=== PATIENT | female | born 1930 | race Asian ===

== ENCOUNTER 2020-11-20 15:53 | Emergency (ER) | payer OTHER, SELFPAY ==
[~2020-11-20] VITALS: Ht 152.4 cm; Wt 52.2 kg
[2020-11-20 15:53] VITALS: BP_SYST 141
[~2020-11-20 15:53] MED LIST: ALLO100T PO; AMLO2.5T2 PO; ASA81 PO; FERR220S6 PO; FURO-149 PO; HYDR-4039 PO; ISOS60TA71 PO; LIP20 PO; PRED20TA PO; PRO40 PO; REN800 PO; RESEYE OP; SEVE800T27; SODI650T PO; TOPXL100 PO
--- NOTE | 2020-11-20 16:01 | NUR ---
Placed in room 01 . Placed on underwear cutter, blood pressure machine and pulse oximeter. To gown for exam. Side rails up.
--- NOTE | 2020-11-20 16:05 | NUR ---
DR HERNANDEZ IN TO ASSESS
--- NOTE | 2020-11-20 16:16 | NUR ---
RECEIVED AND IN ROOM, PT HERE FROM [facility] FOR [facility]EM[facility], PT CALM, ALERT, RESP UNLABORED, SKIN WARM AND DRY
--- NOTE | 2020-11-20 16:23 | NUR ---
LABS EKG, CXR COMPLETED, PT CALM, ALERT, NO DISTRESS
[2020-11-20 16:49] LABS: BASOPHILS # (AUTO) 0.1 K/uL (0.0-0.2); BASOPHILS % (AUTO) 0.8 % (0.0-2.0); EOSINOPHILS % (AUTO) 0.5 % (0.0-4.0); HEMATOCRIT 24.9 % (36-48); HEMOGLOBIN 8.2 g/dL (12.0-16.0); LYMPHOCYTES # (AUTO) 1.8 K/uL (1.0-5.5); LYMPHOCYTES % (AUTO) 28.8 % (20.5-51.5); MEAN CORPUSCULAR HEMOGLOBIN 32 pg (27-31); MEAN CORPUSCULAR HGB CONC 33 % (32-36); MEAN CORPUSCULAR VOLUME 97 fL (79.0-98.0); MONOCYTES % (AUTO) 15.8 % (1.7-9.3); NEUTROPHILS # (AUTO) 3.4 K/uL (1.8-7.7); NEUTROPHILS % (AUTO) 54.1 % (40.0-70.0); PLATELET COUNT (AUTO) 121 K/uL (130-430); RED BLOOD CELL COUNT(AUTO) 2.56 MIL/uL (4.2-6.2); RED CELL DISTRIBUTION WIDTH 18.6 % (9.0-15.0); WHITE BLOOD COUNT (AUTO) 6.3 K/uL (4.8-10.8)
[2020-11-20 16:54] LABS: ANION GAP -3 (5-15); CALCIUM 8.1 mg/dL (8.4-11.0); CHLORIDE 96 mmol/L (98-107); CREATININE 2.63 mg/dL (0.55-1.30); GLUCOSE 107 mg/dL (70-99); POTASSIUM 3.7 mmol/L (3.5-5.1); SODIUM SERUM 129 mmol/L (136-145); UREA NITROGEN, BLOOD 18 mg/dL (8-21)
[2020-11-20 17:00] LABS: ALANINE AMINOTRANSFERASE 22 U/L (12-78); ALBUMIN 2.3 g/dL (3.4-4.8); AMYLASE 86 U/L (0-100); ASPARTATE AMINOTRANSFERASE 31 U/L (10-37); LIPASE 473 U/L (73-393); TOTAL BILIRUBIN 0.4 mg/dL (0.0-1.0)
[2020-11-20 17:06] LABS: INR 1.1 (0.8-1.2); PROTHROMBIN TIME 11.2 SECS (9.5-12.5)
--- NOTE | 2020-11-20 17:55 | NUR ---
PT AWARE OF DISCHARGE AND GOING BACK VIA AMBULANCE, IN AGREEMENT
[2020-11-20 18:16] VITALS: BP_SYST 135
--- NOTE | 2020-11-20 18:37 | NUR ---
REPORT CALLED TO SANAM AT THE "[place]. AGREEABLE AND AWARE OF ROBERT LANIER.
--- NOTE | 2020-11-20 20:17 | NUR ---
ASLEEP, NO DISTRESS NOTED.
--- NOTE | 2020-11-20 22:00 | NUR ---
DOZES ON AND OFF. DENIES PAIN, SOB.
--- NOTE | 2020-11-21 00:20 | NUR ---
Patient given written and verbal discharge instructions and verbalizes understanding. ER MD DR MIRANDA discussed with patient the results and treatment provided. Patient in stable condition. ID arm band removed. Patient educated on pain management and to follow up with PMD. Pain Scale . Opportunity for questions provided and answered. Medication side effect fact sheet provided. [facility]-1 HERE TO TRANSFER TO [facility].
== END 2020-11-20 22:00 | disposition home or self-care (01) ==
LOC: SED 15:53
DX: D64.9 Anemia, unspecified (principal); N18.6 End stage renal disease; Z99.2 Dependence on renal dialysis; Z79.899 Other long term (current) drug therapy
CPT/HCPCS: 36415; 71045; 80053; 82150; 83690; 85025; 85610-TC; 85730-TC; 86886; 86900; 86901; 93005; 99285